=== PATIENT | female | born 1970 | race Caucasian/White ===

== ENCOUNTER → 2024-03-14 | Emergency (ER) | payer BC ==
[~2024-03-14] VITALS: Ht 170.2 cm; Wt 122.5 kg
[~2024-03-14] MED LIST: AMLO-212 PO
[2024-03-14 16:44] VITALS: BP 155/95; TEMP 97.7; O2SAT 98
== END | disposition home or self-care (01) ==
LOC: ER 16:04
DX: I10 Essential (primary) hypertension (principal); Z86.69 Personal history of other diseases of the nervous system and sense organs; Z87.39 Personal history of other diseases of the musculoskeletal system and connective tissue; Z60.2 Problems related to living alone